=== PATIENT | female | born 1955 | race Asian ===

== ENCOUNTER 2017-12-30 05:59 | Emergency (ER) | payer OTHER ==
[~2017-12-30] VITALS: Ht 157.5 cm; Wt 74.7 kg
[2017-12-30 06:21] VITALS: BP 151/83
[2017-12-30 07:00] LABS: CULTURE INDICATED? YES; MICROSCOPIC INDICATED
[2017-12-30] MEDS ORDERED: SIMV40TA3 PO (07:00)
[2017-12-30] MEDS ORDERED: BUDE10.2 INH (07:00)
[2017-12-30] MEDS ORDERED: PROP80CA12 PO (07:00)
[2017-12-30] MEDS ORDERED: MONT10TA6 PO (07:00)
[2017-12-30] MEDS ORDERED: CELE200C PO (07:00)
[2017-12-30] MEDS ORDERED: CALC1CAP8 PO (07:00)
[2017-12-30] MEDS ORDERED: ALBU8.5H8 INH (07:00)
== END 2017-12-30 07:38 | disposition home or self-care (01) ==
LOC: ED 07:32
DX: N30.01 Acute cystitis with hematuria (principal)
CPT/HCPCS: 81001; 87077; 87086; 87186; 99284

== ENCOUNTER 2019-08-18 11:12 | Outpatient (CLI) | payer MEDICARE, OTHER ==
[~2019-08-18 11:12] MED LIST: ALBU8.5H8 INH; BUDE10.2 INH; CALC1CAP8 PO; CELE200C PO; MONT10TA6 PO; PROP80CA47 PO; SIMV40TA20 PO
[2019-08-18] MEDS ORDERED: ONDA4TAB13 SL (11:47)
[2019-08-18] MEDS ORDERED: ESOM40CA PO (11:47)
[2019-08-18] MEDS ORDERED: HYDR-3237 PO (11:47)
== END 2019-08-18 23:59 | disposition home or self-care (01) ==
LOC: STAR 11:12
PROVIDERS: ATTEND Internal Medicine Geriatric Medicine
DX: Z01.818 Encounter for other preprocedural examination (principal); K31.89 Other diseases of stomach and duodenum
CPT/HCPCS: 93005; U0001

== ENCOUNTER 2019-08-22 06:34 | Day surgery (SDC) | payer MEDICARE, OTHER ==
[~2019-08-22] VITALS: Ht 157.5 cm; Wt 65.5 kg
[~2019-08-22 06:34] MED LIST changes: +ESOM40CA PO; +HYDR-3237 PO; +ONDA4TAB13 SL
[2019-08-22 06:52] VITALS: BP 129/87
[2019-08-22] MEDS ORDERED: LACTATED RINGERS 1,000 ML IV SCH (06:57)
[2019-08-22] MEDS ORDERED: CHLORHEXIDINE 15 ML UDC MM ONE (07:00)
[2019-08-22] MEDS ORDERED: CHLORHEXIDINE 15 ML UDC ONE (07:03)
[2019-08-22] MEDS ORDERED: SUCCINYLCHOLINE 20 MG/ML, 10ML ONE (09:01)
[2019-08-22] MEDS ORDERED: PROPOFOL 10 MG/ML, 20ML ONE (09:01)
[2019-08-22] MEDS ORDERED: ONDANSETRON 2MG/ML, 2ML ONE (09:01)
[2019-08-22] MEDS ORDERED: DIAZEPAM 5 MG/ML, 2ML IVPush PRN (10:00)
[2019-08-22] MEDS ORDERED: KETOROLAC 30 MG/1 ML IV PRN (10:00)
[2019-08-22] MEDS ORDERED: ALBUTEROL SULFATE 2.5 MG/3 ML NPPB PRN (10:00)
[2019-08-22] MEDS ORDERED: PROMETHAZINE 25 MG/ML, 1ML IV PRN (10:00)
[2019-08-22] MEDS ORDERED: FENTANYL PF 100 MCG/2ML IV PRN (10:00)
[2019-08-22] MEDS ORDERED: HYDROmorphone 2 MG/ML, 1ML IVPush PRN (10:00)
[2019-08-22] MEDS ORDERED: hydrALAzine 20 MG/ML, 1ML IV PRN (10:00)
[2019-08-22] MEDS ORDERED: OXYcodone 5 MG/5 ML ORAL.SOL UDC PO PRN (10:00)
[2019-08-22] MEDS ORDERED: LABETALOL 5MG/ML, 20ML IV PRN (10:00)
[2019-08-22] MEDS ORDERED: MEPERIDINE/PF 25MG/0.5ML IVPush PRN (10:00)
[2019-08-22] MEDS ORDERED: ACETAMINOPHEN 325 MG TABLET PO PRN (10:00)
[2019-08-22] MEDS ORDERED: PROMETHAZINE 25 MG/ML, 1ML ONE (10:17)
[2019-08-22] MEDS ORDERED: FENTANYL PF 100 MCG/2ML ONE (11:46)
== END 2019-08-22 11:45 | disposition home or self-care (01) ==
LOC: OUT 06:34
PROVIDERS: ATTEND Internal Medicine Geriatric Medicine
DX: K86.89 Other specified diseases of pancreas (principal); C25.1 Malignant neoplasm of body of pancreas; J45.909 Unspecified asthma, uncomplicated; I10 Essential (primary) hypertension; E78.5 Hyperlipidemia, unspecified; Z79.891 Long term (current) use of opiate analgesic; Z79.899 Other long term (current) drug therapy
CPT/HCPCS: 43242; 88172; 88173; 88307; J0330; J2405; J2550; J2704; J7120; J3010